=== PATIENT | male | born 1935 | race Caucasian/White ===

== ENCOUNTER 2016-05-04 16:45 | Outpatient (CLI) ==
[2015-06-22 21:57] VITALS: BMI 17.6
== END 2016-05-04 16:46 | disposition home or self-care (01) ==
LOC: AMBL 16:45
PROVIDERS: ATTEND Family Medicine
DX: F91.8 Other conduct disorders (principal); F79 Unspecified intellectual disabilities

== ENCOUNTER 2018-04-05 00:01 | Outpatient (CLI) | payer OTHER ==
[2015-06-22 21:57] VITALS: BMI 17.6
== END 2018-04-05 00:21 | disposition short-term general hospital (02) ==
LOC: AMBL 00:01
PROVIDERS: ATTEND Internal Medicine Geriatric Medicine
DX: T17.908A Unspecified foreign body in respiratory tract, part unspecified causing other injury, initial encounter (principal); M62.40 Contracture of muscle, unspecified site; B91 Sequelae of poliomyelitis